=== PATIENT | male | born 1935 | race American Indian/Alaskan Native ===

== ENCOUNTER 2017-05-24 10:09 | Outpatient (CLI) | payer MEDICARE ==
--- NOTE | 2017-05-24 13:12 | Cat Scan Report ---
CT scan of abdomen and pelvis without IV contrast: History: Malignant neoplasm of prostate. Findings: Normal lung bases. No pleural pericardial effusion. Normal liver, spleen and gallbladder. Atrophic pancreas. Normal adrenals. Suspected 2.4 cm hyperdense mass lower pole of right kidney adjacent to the hilum. No calculi the kidney parenchyma. Left pelvic kidney. No hydronephrosis. Partly decompressed urinary bladder. Prostatic seeds. Fecal impaction in rectum with moderate volume stool in the colon. No evidence of free fluid or adenopathy. No evidence of appendicitis or diverticulitis. 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 Impression: Suspected hyperdense mass right kidney may be due to hemorrhagic cyst or neoplasm among others. 2 subcentimeter hyperdense masses are noted in the right kidney probably hemorrhagic cysts. Left pelvic kidney. Fecal impaction in rectum with moderate volume stool throughout colon.
--- NOTE | 2017-05-24 15:02 | Nuclear Medicine Report ---
Whole body bone scan: Prostate cancer. Following injection radionuclide whole body imaging at 3 hours was obtained. Activity is identified in the right kidney and urinary bladder. No left kidney present. There is a mildly decreased bone to background ratio. There is a focally intense area of radionuclide uptake at the anterior articulation of the left third rib. A less intense focal area is seen on the right at this location. There is intense uptake in the lower lumbar spine at approximately L3-4. Minimal foci of increased activity noted around the left knee and both ankles. The L3-4 activity is explained by severe degenerative changes identified on prior imaging. The increased rib activity is generally symmetric and rather nonspecific. Impression: Low suspicion for metastatic disease.
== END 2017-05-24 10:10 | disposition home or self-care (01) ==
LOC: NM 10:09
PROVIDERS: ATTEND Urology
DX: C61 Malignant neoplasm of prostate (principal); K86.89 Other specified diseases of pancreas; N28.89 Other specified disorders of kidney and ureter; K56.41 Fecal impaction; M47.896 Other spondylosis, lumbar region
CPT/HCPCS: 74176; 78306; A9503

== ENCOUNTER 2017-06-21 06:38 | Day surgery (SDC) | payer MEDICARE ==
[2017-06-21 07:28] LABS: Basophils % (Auto) 0.8 % (0.0-1.8); Eosinophils % (Auto) 2.8 % (0.0-4.3); Hematocrit 34.7 % (35.5-45.6); Hemoglobin 11.5 gm/dl (11.8-15.2); Mean Corpuscular HGB Conc 33 % (32-34); Mean Corpuscular Hemoglobin 28 pg (28-32); Mean Corpuscular Volume 84 fl (84-94); Platelet Count 158 K/mm3 (140-440); Red Blood Count 4.11 M/mm3 (3.65-5.03); Red Cell Distribution Width 14.2 % (13.2-15.2); White Blood Count 4.3 K/mm3 (4.5-11.0)
[2017-06-21 07:41] LABS: INR 0.9 (0.87-1.13)
[2017-06-21 07:42] LABS: Partial Thromboplastin Time 31.8 Sec. (24.2-36.6)
== END 2017-06-21 08:15 | disposition home or self-care (01) ==
LOC: CATHLABREC 06:38 → EDSTATUS 08:30
PROVIDERS: ATTEND Urology
DX: N28.89 Other specified disorders of kidney and ureter (principal); Z53.8 Procedure and treatment not carried out for other reasons
CPT/HCPCS: 36415; 85025; 85610; 85730